=== PATIENT | male | born 1985 | race Caucasian/White ===

== ENCOUNTER 2016-05-21 11:45 | Emergency (ER) | payer OTHER ==
[~2016-05-21 11:45] MED LIST: ABIL10TA OR; ATARAX OR; EXTR500C4 PO; IBUP80TA PO; PERC5TAB6 PO; ROBA750T4 PO; TIZA4CAP3 PO; TRAZ100T OR; ZOLO50TA OR; no historical meds
[2016-05-21] MEDS ORDERED: KETOROLAC 30 MG/ML VIAL (J1885) As Ordered ONE (12:48)
[2016-05-21] MEDS ORDERED: ONDANSETRON 4MG/2ML VIAL (J2405) As Ordered ONE (12:48)
[2016-05-21 13:14] LABS: BASO # 0.1 K/mm3 (0.0-0.2); BASO % 0.7 % (0.0-1.0); EOS # 0.3 K/mm3 (0.0-0.50); EOS % 2.6 % (0.0-3.0); LARGE UNSTAINED CELL # 0.2 K/mm3 (0.0-0.4); LARGE UNSTAINED CELL % 1.8 % (0.0-4.0); LYMPH # 3.8 K/mm3 (1.5-4.5); LYMPH % 31.3 % (24.0-44.0); MEAN CORPUSCULAR HGB CONC 34.7 g/dl (32.0-36.5); MEAN CORPUSCULAR VOLUME 86.6 fl (80.0-96.0); MONO # 0.5 K/mm3 (0.0-0.8); MONO % 4.5 % (0.0-5.0); NEUTROPHILS # 7.1 K/mm3 (1.8-7.7); NEUTROPHILS % 59.1 % (36.0-66.0); PLATELET COUNT, AUTOMATED 231 k/mm3 (150-450); RED CELL DISTRIBUTION WIDTH 13.2 % (11.5-14.5)
[2016-05-21 13:35] LABS: ALBUMIN 3.8 GM/DL (3.2-5.2); ALKALINE PHOSPHATASE 87 U/L (45-117); ALT/SGPT 61 U/L (12-78); ANION GAP 6 MEQ/L (8-16); AST/SGOT 29 U/L (15-37); BILIRUBIN,DIRECT < 0.1 MG/DL (0.0-0.2); BILIRUBIN,TOTAL 0.3 MG/DL (0.2-1.0); BLOOD UREA NITROGEN 16 MG/DL (7-18); CALCIUM LEVEL 8.7 MG/DL (8.5-10.1); CARBON DIOXIDE LEVEL 30 MEQ/L (21-32); CHLORIDE LEVEL 107 MEQ/L (98-107); CREATININE FOR GFR 1.06 MG/DL (0.70-1.30); GLOMERULAR FILTRATION RATE > 60.0 (>60); GLUCOSE, FASTING 97 MG/DL (70-105); POTASSIUM SERUM 4.1 MEQ/L (3.5-5.1); SODIUM LEVEL 143 MEQ/L (136-145); TOTAL PROTEIN 7.6 GM/DL (6.4-8.2)
[2016-05-21] MEDS ORDERED: ISOVUE-370 76% 100ML VIAL (Q9967) As Ordered ONE (13:47)
--- NOTE | 2016-05-21 15:50 | EDDOCDS ---
Nurse's Notes [facility] Name: Tremaine Brown Age: 31 yrs Sex: Male : 1985 Arrival Date: 05/21/2016 Time: 11:45 Bed I4 / M4 Private MD: NO PRIMARY PHYSICIAN, . Diagnosis: Abdominal and pelvic pain;Nausea and vomiting;Diarrhea, unspecified;Umbilical hernia-fat only Presentation: 05/21 11:49 Presenting complaint: Patient states: abdominal pain, nausea, diarrhea, bloody stools rs3 for 5 days. Risk factors: the patient reports not having a history of previous torsion. Adult Sepsis Screening: The patient does not have new or worsening altered mentation. Patient's respiratory rate is less than 22. Systolic blood pressure is greater than 100. Patient has a qSOFA score of 0- Negative Sepsis Screen. Suicide/Homicide risk assessment- the patient denies having any suicidal and/or homicidal ideations and does not present with any other emotional, behavioral or mental health complaints. Status: Patient is not a alarm service technician or dependent. Transition of care: patient was not received from another setting of care. 11:49 Acuity: LEONARDO Level 3 rs3 11:49 Method Of Arrival: Walkin/Carried/Asstd rs3 Triage Assessment: 11:52 General: Appears in no apparent distress. Pain: Location: abdomen. Pt Declines HIV rs3 testing. GI: Reports lower abdominal pain, upper abd pain. Historical: - Allergies: no known allergies; - Home Meds: 1. none - PMHx: Bipolar disorder; - PSHx: Tonsillectomy; - Social history: Smoking status: Patient uses tobacco products, heavy tobacco smoker. No barriers to communication noted, The patient speaks fluent Azeri. - Family history: Not pertinent. - : The pt / caregiver states he / she is not on anticoagulants. Home medication list is obtained from the patient. - Exposure Risk Screening:: None identified. Screenin:52 Screening information is obtained from the patient. Fall risk: No risks identified. kr3 Assistance ADL's: requires no assistance with activities of daily living. Abuse/DV Screen: The patient / caregiver reports he/she is: not in a situation that causes fear, pain or injury. Nutritional screening: No deficits noted. Advance Directives: Currently, there is no health care proxy. home support is adequate. Assessment: 12:52 Pain: Location: abdomen Pain currently is 8 out of 10 on a pain scale. At worst was 9 kr3 out of 10 on a pain scale. Neurological: Level of Consciousness is awake, alert. GI: Abdomen is non- distended. GI: Reports normal bowel movements but eating habits have changed. Reports weight loss of 20 to 30 pounds over 2 months. GI: Bowel sounds present X 4 quads. Abd is soft X 4 quads reports when lower abdomen is palpated pain increases when pressure is released. Derm: Skin is normal. 13:47 General: Appears states pain has decreased to 5/10. quietly resting. IV bolus continues.jmk 15:19 General: Appears in no apparent distress, Behavior is appropriate for age, cooperative, jmb Patient laying on stretcher with family at bedside. Patient stated that he was waiting for CT results. Patient informed of Damion Ortiz's wait for results. Patient stated that he was ready to go home. Provider notified of patient's statement. NO further complaints at this time. . Neurological: Level of Consciousness is awake, alert, obeys commands, Oriented to person, place, time, Cocoa Bean Cleaner are equal bilaterally Speech is normal, Facial symmetry appears normal, Facial symmetry: tongue is midline. Respiratory: Airway is patent Respiratory effort is even, unlabored, Respiratory pattern is regular, symmetrical. Derm: Skin is normal. 15:47 General: Patient instructed on discharge instructions. Patient asked if there were any [place] questions regarding discharge, patient stated no. IV discontinued per hospital policy. Patient signed discharge instructions. Patient discharged in stable condition. . Vital Signs: 11:48 BP 152 / 90; Pulse 74; Resp 18 S; Temp 96.3(O); Pulse Ox 100% on R/A; Weight 95.25 kg dd6 (R); Height 5 ft. 10 in. (177.80 cm) (R); 15:47 BP 133 / 80; Pulse 71; Resp 18; Temp 98.4(TE); Pulse Ox 98% on R/A; Pain 4/10; dem1 11:48 Body Mass Index 30.13 (95.25 kg, 177.80 cm) dd6 Vitals: 11:48 Log In Time: May 21, 2016 at 11:46. dd6 ED Course: 11:47 Patient visited by Alireza Martinez, JULI. dd6 11:47 NO PRIMARY PHYSICIAN, . is Private Physician. dd6 11:47 Patient moved to Waiting dd6 11:48 Patient moved to Pre RCE dd6 11:51 Triage Initiated rs3 12:31 Patient moved to Triage 3 ms2 12:32 Damion Ortiz PA-C is PHCP. cc10 12:32 Arsh Eckert MD is Attending Physician. cc10 12:33 Patient visited by Damion Ortiz PA-C. cc10 12:33 Patient visited by Damion Ortiz PA-C. cc10 12:40 Patient moved to I4 / M4 ct3 12:40 Urinalysis Sent. ct3 12:51 Inserted saline lock: 20 gauge in right antecubital area and blood collected. The kr3 patient tolerated the procedure well. 12:52 The patient / caregiver is instructed regarding the plan of care and ED course. kr3 Accompanied by Family Member, Patient has correct armband on for positive identification. Placed in gown. Bed in low position. Call light in reach. Side rails up X 1. 12:55 Basic Metabolic Profile Sent. jmk 12:55 CBC with Diff Sent. jmk 12:55 Lipase Sent. jmk 12:55 Liver Profile Sent. jmk 13:29 [facility] Payment Agreement was scanned into [email or web address] and attached to record. lg 13:47 Patient visited by Victorino Branch RN. jmk 13:52 Patient name changed from Tremaine\S\Syed\S\Brown\S\ to Tremaine\S\Snehal\S\Kevin. EDMS 15:21 Patient visited by Joseph Rondon RN. jmb 15:41 [facility] is Referral Physician. cc10 15:47 Discontinued lock intact, bleeding controlled, pressure dressing applied, No jmb redness/swelling at site. No procedures done that require assistance. 15:48 Patient visited by Pao Paniagua. dem1 Administered Medications: 12:54 Drug: NS 0.9% 1000 ml Route: IV; Rate: bolus; Site: left antecubital; jmk 12:54 Drug: Ondansetron 4 mg Route: IVP; Site: left antecubital; jmk 12:54 Drug: ketorolac 30 mg [ketorolac 30 mg/mL (1 mL) injection solution (1 mL)] Route: IVP; [facility] Site: left antecubital; 13:48 Follow up: Response: Pain is decreased [facility] Order Results: Lab Order: Basic Metabolic Profile; SPEC'M 05/21/16 12:49 Test: GLUCOSE, FASTING; Value: 97; Range: 70-105; Units: MG/DL; Status: F Test: BLOOD UREA NITROGEN; Value: 16; Range: 7-18; Units: MG/DL; Status: F Test: CREATININE FOR GFR; Value: 1.06; Range: 0.70-1.30; Units: MG/DL; Status: F Test: GLOMERULAR FILTRATION RATE; Value: > 60.0; Range: >60; Status: F Test: SODIUM LEVEL; Value: 143; Range: 136-145; Units: MEQ/L; Status: F Test: POTASSIUM SERUM; Value: 4.1; Range: 3.5-5.1; Units: MEQ/L; Status: F Test: CHLORIDE LEVEL; Value: 107; Range: 98-107; Units: MEQ/L; Status: F Test: CARBON DIOXIDE LEVEL; Value: 30; Range: 21-32; Units: MEQ/L; Status: F Test: ANION GAP; Value: 6; Range: 8-16; Abnormal: Below low normal; Units: MEQ/L; Status: F Test: CALCIUM LEVEL; Value: 8.7; Range: 8.5-10.1; Units: MG/DL; Status: F Test Note: ; Units are mL/min/1.73 m2 Chronic Kidney Disease Staging per NKF: Stage I & II GFR >=60 Normal to Mildly Decreased Stage III GFR 30-59 Moderately Decreased Stage IV GFR 15-29 Severely Decreased Stage V GFR <15 Very Little GFR Left ESRD GFR <15 on [employer]STRUCTOR [employer] Lab Order: CBC with Diff; SPEC'M 05/21/16 12:49 Test: WHITE BLOOD COUNT; Value: 12.0; Range: 4.0-10.0; Abnormal: Above high normal; Units: K/mm3; Status: F Test: RED BLOOD COUNT; Value: 5.35; Range: 4.30-6.10; Units: M/mm3; Status: F Test: HEMOGLOBIN; Value: 16.1; Range: 14.0-18.0; Units: g/dl; Status: F Test: HEMATOCRIT; Value: 46.3; Range: 42.0-52.0; Units: %; Status: F Test: MEAN CORPUSCULAR VOLUME; Value: 86.6; Range: 80.0-96.0; Units: fl; Status: F Test: MEAN CORPUSCULAR HEMOGLOBIN; Value: 30.0; Range: 27.0-33.0; Units: pg; Status: F Test: MEAN CORPUSCULAR HGB CONC; Value: 34.7; Range: 32.0-36.5; Units: g/dl; Status: F Test: RED CELL DISTRIBUTION WIDTH; Value: 13.2; Range: 11.5-14.5; Units: %; Status: F Test: PLATELET COUNT, AUTOMATED; Value: 231; Range: 150-450; Units: k/mm3; Status: F Test: NEUTROPHILS %; Value: 59.1; Range: 36.0-66.0; Units: %; Status: F Test: LYMPH %; Value: 31.3; Range: 24.0-44.0; Units: %; Status: F Test: MONO %; Value: 4.5; Range: 0.0-5.0; Units: %; Status: F Test: EOS %; Value: 2.6; Range: 0.0-3.0; Units: %; Status: F Test: BASO %; Value: 0.7; Range: 0.0-1.0; Units: %; Status: F Test: LARGE UNSTAINED CELL %; Value: 1.8; Range: 0.0-4.0; Units: %; Status: F Test: NEUTROPHILS #; Value: 7.1; Range: 1.8-7.7; Units: K/mm3; Status: F Test: LYMPH #; Value: 3.8; Range: 1.5-4.5; Units: K/mm3; Status: F Test: MONO #; Value: 0.5; Range: 0.0-0.8; Units: K/mm3; Status: F Test: EOS #; Value: 0.3; Range: 0.0-0.50; Units: K/mm3; Status: F Test: BASO #; Value: 0.1; Range: 0.0-0.2; Units: K/mm3; Status: F Test: LARGE UNSTAINED CELL #; Value: 0.2; Range: 0.0-0.4; Units: K/mm3; Status: F Lab Order: Lipase; [facility] 05/21/16 12:49 Test: LIPASE; Value: 139; Range: 73-393; Units: U/L; Status: F Lab Order: Liver Profile; [facility] 05/21/16 12:49 Test: AST/SGOT; Value: 29; Range: 15-37; Units: U/L; Status: F Test: ALT/SGPT; Value: 61; Range: 12-78; Units: U/L; Status: F Test: ALKALINE PHOSPHATASE; Value: 87; Range: 45-117; Units: U/L; Status: F Test: BILIRUBIN,TOTAL; Value: 0.3; Range: 0.2-1.0; Units: MG/DL; Status: F Test: BILIRUBIN,DIRECT; Value: < 0.1; Range: 0.0-0.2; Units: MG/DL; Status: F Test: TOTAL PROTEIN; Value: 7.6; Range: 6.4-8.2; Units: GM/DL; Status: F Test: ALBUMIN; Value: 3.8; Range: 3.2-5.2; Units: GM/DL; Status: F Test: ALBUMIN/GLOBULIN RATIO; Value: 1.00; Range: 1.00-1.93; Status: F Lab Order: Urinalysis; [facility] 05/21/16 12:39 Test: APPEARANCE, URINE; Value: CLEAR; Range: CLEAR; Status: F Test: COLOR, URINE; Value: YELLOW; Range: YELLOW; Status: F Test: PH,URINE; Value: 5.0; Range: 5.0-9.0; Units: UNITS; Status: F Test: SPECIFIC GRAVITY URINE AUTO; Value: 1.021; Range: 1.002-1.035; Status: F Test: PROTEIN, URINE AUTO; Value: NEGATIVE; Range: NEGATIVE; Units: mg/dL; Status: F Test: GLUCOSE, URINE (UA) AUTO; Value: NEGATIVE; Range: NEGATIVE; Units: mg/dL; Status: F Test: KETONE, URINE AUTO; Value: NEGATIVE; Range: NEGATIVE; Units: mg/dL; Status: F Test: UROBILINOGEN, URINE AUTO; Value: 0.2; Range: 0.0-2.0; Units: mg/dL; Status: F Test: BILIRUBIN, URINE AUTO; Value: NEGATIVE; Range: NEGATIVE; Status: F Test: NITRITE, URINE AUTO; Value: NEGATIVE; Range: NEGATIVE; Status: F Test: LEUKOCYTE ESTERASE, URINE AUTO; Value: NEGATIVE; Range: NEGATIVE; Status: F Test: BLOOD, URINE BLOOD; Value: NEGATIVE; Range: NEGATIVE; Status: F Test: WBC, URINE AUTO; Value: 0; Range: 0-3; Units: /HPF; Status: F Test: RBC, URINE AUTO; Value: 0; Range: 0-3; Units: /HPF; Status: F Test: BACTERIA, URINE AUTO; Value: NEGATIVE; Range: NEGATIVE; Status: F Test: SQUAMOUS EPITHELIAL CELL UR AU; Value: 0; Range: 0-6; Units: /HPF; Status: F Test: HYALINE CAST, URINE AUTO; Value: 0; Range: 0-1; Units: /LPF; Status: F Outcome: 14:10 CT Study completed. kr3 15:41 Discharge ordered by Provider. cc10 15:47 Discharge Assessment: Patient awake, alert and oriented x 3. No cognitive and/or jmb functional deficits noted. Patient verbalized understanding of disposition instructions. Patient awake and alert. obeys commands, Oriented to person, place and time. Patient verbalized understanding of disposition instructions. Patient has no functional deficits. patient administered narcotics - no. The following High Risk Discharge criteria are identified: None. Discharged to home ambulatory, with family. Condition: stable. Discharge instructions given to patient, Instructed on discharge instructions, follow up and referral plans. medication usage, Demonstrated understanding of instructions, medications, Pt was receptive of discharge instructions/ teaching. Prescriptions given X 2. Property sent home with patient. 15:49 Patient left the ED. b Signatures: Dispatcher [employer] EDGuy Johnson,Victorino Lott RN, RN RN jmk Ganter, LoriLee, Shital Franklin lg, RN RN kr3 Alireza Martinez, ONLINE MERCHANDISING MANAGER ONLINE MERCHANDISING MANAGER dd6 Karrie Choudhary RN RN rs3 Kiana Gay, ONLINE MERCHANDISING MANAGER ONLINE MERCHANDISING MANAGER ct3 Pao Paniagua dem1 Joseph Rondon,RN RN jmb Damion Ortiz, PA-C PA-C cc10 MTDD
--- NOTE | 2016-05-21 15:50 | EDDOCDS ---
Physician Documentation [facility] Name: Tremaine Brown Age: 31 yrs Sex: Male : 1985 Arrival Date: 05/21/2016 Time: 11:45 Bed I4 / M4 Private MD: NO PRIMARY PHYSICIAN, . Disposition: 05/21/16 15:41 Discharged to Home/Self Care. Impression: Abdominal and pelvic pain, Nausea and vomiting, Diarrhea, unspecified, Umbilical hernia - fat only. - Condition is Stable. - Discharge Instructions: Viral Gastroenteritis. - Prescriptions for Bentyl 10 mg Oral Capsule - take 1 capsule by ORAL route every 6 hours As needed; 40 capsule. ZOFRAN ODT 4 mg - dissolve 1 tablet by ORAL route 4 times per day As needed do not chew, do not swallow whole; 10 tablet. - Medication Reconciliation form. - Follow up: Emergency Department; When: As needed. Follow up: [facility]; When: Call to arrange an appointment; Reason: Wound/Symptom Recheck, Recheck today's complaints, Worsening of conditions, Continuance of care. - Problem is an ongoing problem. - Symptoms are unchanged. Historical: - Allergies: no known allergies; - Home Meds: 1. none - PMHx: Bipolar disorder; - PSHx: Tonsillectomy; - Social history: Smoking status: Patient uses tobacco products, heavy tobacco smoker. No barriers to communication noted, The patient speaks fluent [place]. - Family history: Not pertinent. - : The pt / caregiver states he / she is not on anticoagulants. Home medication list is obtained from the patient. - Exposure Risk Screening:: None identified. Vital Signs: 05/21 11:48 BP 152 / 90; Pulse 74; Resp 18 S; Temp 96.3(O); Pulse Ox 100% on R/A; Weight 95.25 kg / dd6 209.99 lbs (R); Height 5 ft. 10 in. (177.80 cm) (R); 15:47 BP 133 / 80; Pulse 71; Resp 18; Temp 98.4(TE); Pulse Ox 98% on R/A; Pain 4/10; dem1 11:48 Body Mass Index 30.13 (95.25 kg, 177.80 cm) dd6 MDM: 12:36 NS 0.9% 1000 ml IV at bolus once ordered. cc10 12:36 Ondansetron 4 mg IVP once ordered. cc10 12:36 ketorolac 30 mg IVP once ordered. cc10 12:36 IV Saline Lock ordered. cc10 12:36 Undress patient appropriately for examination ordered. cc10 12:37 Basic Metabolic Profile Ordered. EDMS 12:37 CBC with Diff Ordered. EDMS 12:37 Lipase Ordered. EDMS 12:37 Liver Profile Ordered. EDMS 12:37 Urinalysis Ordered. EDMS 12:38 CT ABD & PELVIS: IV Contrast Only Ordered. EDMS 12:38 NOTHING BY MOUTH+DIET ordered. EDMS 13:10 Financial registration complete. lg 13:29 [facility] Payment Agreement was scanned into [employer] and attached to record. lg 13:41 Basic Metabolic Profile Reviewed. cc10 13:41 CBC with Diff Reviewed. cc10 13:41 Lipase Reviewed. cc10 13:41 Liver Profile Reviewed. cc10 13:41 Urinalysis Reviewed. cc10 Administered Medications: 12:54 Drug: NS 0.9% 1000 ml Route: IV; Rate: bolus; Site: left antecubital; [facility] 12:54 Drug: Ondansetron 4 mg Route: IVP; Site: left antecubital; [facility] 12:54 Drug: ketorolac 30 mg [ketorolac 30 mg/mL (1 mL) injection solution (1 mL)] Route: IVP; [facility] Site: left antecubital; 13:48 Follow up: Response: Pain is decreased [facility] Signatures: Dispatcher [employer] EDMO Gilbert Wilcox, Reg Reg lg Karrie Choudhary RN RN rs3 Joseph Rondon RN RN jmb Coniski, Colin, PA-C PA-C cc10 Victorino Branch RN The chart was reviewed and I authenticate all verbal orders and agree with the evaluation and treatment provided.Attachments: 13:29 [facility]
--- NOTE | 2016-05-22 22:01 | REP ---
CT abdomen and pelvis with IV contrast 05/21/16 Patient: Appendicitis Comparison: CT of the pelvis 01/06/2013 Technique: Following IV contrast administration with 100 ml Isovue 370 mg/ml IV, 3 mm spiral axial sections were performed through the abdomen and pelvis Findings: Small amount of atelectasis and/or fibrotic scarring present in lung bases bilaterally, right greater than left. Liver, spleen, pancreas are normal. The gallbladder is partially contracted, without stones wall thickening or biliary dilatation. The adrenal glands are normal. Kidneys are without hydronephrosis or obstructing ureteral calculi bilaterally. Stomach, small bowel are within normal limits. The terminal ileum and appendix are normal. Abdominal aorta is of normal course and caliber Bladder is contracted; prostate is not enlarged. There a scattered sigmoid diverticuli. A 10 mm umbilical hernia is noted containing a small amount of omental fat only. There is no free intraperitoneal air or ascites. Impression 1. Unremarkable appendix and gallbladder. 2. Kidneys without hydronephrosis or obstructing ureteral calculi bilaterally. 3. Colon is under distended ; there are a few scattered sigmoid diverticula. 4. 10 mm umbilical hernia containing small amount of omental fat only Signed by Torri Culver MD 05/22/2016 09:52 P
--- NOTE | 2016-05-23 16:50 | EDDOCDS ---
Nurse's Notes [facility] Name: Tremaine Brown Age: 31 yrs Sex: Male : 1985 Arrival Date: 05/21/2016 Time: 11:45 Bed I4 / M4 Private MD: NO PRIMARY PHYSICIAN, . Diagnosis: Abdominal and pelvic pain;Nausea and vomiting;Diarrhea, unspecified;Umbilical hernia-fat only Presentation: 05/21 11:49 Presenting complaint: Patient states: abdominal pain, nausea, diarrhea, bloody stools rs3 for 5 days. Risk factors: the patient reports not having a history of previous torsion. Adult Sepsis Screening: The patient does not have new or worsening altered mentation. Patient's respiratory rate is less than 22. Systolic blood pressure is greater than 100. Patient has a qSOFA score of 0- Negative Sepsis Screen. Suicide/Homicide risk assessment- the patient denies having any suicidal and/or homicidal ideations and does not present with any other emotional, behavioral or mental health complaints. Status: Patient is not a hr shared services consultant or dependent. Transition of care: patient was not received from another setting of care. 11:49 Acuity: LEONARDO Level 3 rs3 11:49 Method Of Arrival: Walkin/Carried/Asstd rs3 Triage Assessment: 11:52 General: Appears in no apparent distress. Pain: Location: abdomen. Pt Declines HIV rs3 testing. GI: Reports lower abdominal pain, upper abd pain. Historical: - Allergies: no known allergies; - Home Meds: 1. none - PMHx: Bipolar disorder; - PSHx: Tonsillectomy; - Social history: Smoking status: Patient uses tobacco products, heavy tobacco smoker. No barriers to communication noted, The patient speaks fluent Yoruba. - Family history: Not pertinent. - : The pt / caregiver states he / she is not on anticoagulants. Home medication list is obtained from the patient. - Exposure Risk Screening:: None identified. Screenin:52 Screening information is obtained from the patient. Fall risk: No risks identified. kr3 Assistance ADL's: requires no assistance with activities of daily living. Abuse/DV Screen: The patient / caregiver reports he/she is: not in a situation that causes fear, pain or injury. Nutritional screening: No deficits noted. Advance Directives: Currently, there is no health care proxy. home support is adequate. Assessment: 12:52 Pain: Location: abdomen Pain currently is 8 out of 10 on a pain scale. At worst was 9 kr3 out of 10 on a pain scale. Neurological: Level of Consciousness is awake, alert. GI: Abdomen is non- distended. GI: Reports normal bowel movements but eating habits have changed. Reports weight loss of 20 to 30 pounds over 2 months. GI: Bowel sounds present X 4 quads. Abd is soft X 4 quads reports when lower abdomen is palpated pain increases when pressure is released. Derm: Skin is normal. 13:47 General: Appears states pain has decreased to 5/10. quietly resting. IV bolus continues.jmk 15:19 General: Appears in no apparent distress, Behavior is appropriate for age, cooperative, jmb Patient laying on stretcher with family at bedside. Patient stated that he was waiting for CT results. Patient informed of Damion Ortiz's wait for results. Patient stated that he was ready to go home. Provider notified of patient's statement. NO further complaints at this time. . Neurological: Level of Consciousness is awake, alert, obeys commands, Oriented to person, place, time, Solution Developer are equal bilaterally Speech is normal, Facial symmetry appears normal, Facial symmetry: tongue is midline. Respiratory: Airway is patent Respiratory effort is even, unlabored, Respiratory pattern is regular, symmetrical. Derm: Skin is normal. 15:47 General: Patient instructed on discharge instructions. Patient asked if there were any [facility] questions regarding discharge, patient stated no. IV discontinued per hospital policy. Patient signed discharge instructions. Patient discharged in stable condition. . Vital Signs: 11:48 BP 152 / 90; Pulse 74; Resp 18 S; Temp 96.3(O); Pulse Ox 100% on R/A; Weight 95.25 kg dd6 (R); Height 5 ft. 10 in. (177.80 cm) (R); 15:47 BP 133 / 80; Pulse 71; Resp 18; Temp 98.4(TE); Pulse Ox 98% on R/A; Pain 4/10; dem1 11:48 Body Mass Index 30.13 (95.25 kg, 177.80 cm) dd6 Vitals: 11:48 Log In Time: May 21, 2016 at 11:46. dd6 ED Course: 11:47 Patient visited by Alireza Martinez, JULI. dd6 11:47 NO PRIMARY PHYSICIAN, . is Private Physician. dd6 11:47 Patient moved to Waiting dd6 11:48 Patient moved to Pre RCE dd6 11:51 Triage Initiated rs3 12:31 Patient moved to Triage 3 ms2 12:32 Damion Ortiz PA-C is PHCP. cc10 12:32 Arsh Eckert MD is Attending Physician. cc10 12:33 Patient visited by Damion Ortiz PA-C. cc10 12:33 Patient visited by Damion Ortiz PA-C. cc10 12:40 Patient moved to I4 / M4 ct3 12:40 Urinalysis Sent. ct3 12:51 Inserted saline lock: 20 gauge in right antecubital area and blood collected. The kr3 patient tolerated the procedure well. 12:52 The patient / caregiver is instructed regarding the plan of care and ED course. kr3 Accompanied by Family Member, Patient has correct armband on for positive identification. Placed in gown. Bed in low position. Call light in reach. Side rails up X 1. 12:55 Basic Metabolic Profile Sent. jmk 12:55 CBC with Diff Sent. jmk 12:55 Lipase Sent. jmk 12:55 Liver Profile Sent. jmk 13:29 [facility] Payment Agreement was scanned into [employer] and attached to record. lg 13:47 Patient visited by Victorino Branch RN. jmk 13:52 Patient name changed from Tremaine\S\Syed\S\Brown\S\ to Tremaine\S\Snehal\S\Kevin. EDMS 15:21 Patient visited by Joseph Rondon RN. jmb 15:41 [facility] is Referral Physician. cc10 15:47 Discontinued lock intact, bleeding controlled, pressure dressing applied, No jmb redness/swelling at site. No procedures done that require assistance. 15:48 Patient visited by Pao Paniagua. dem1 05/22 12:04 T-Sheet-- Draft Copy was scanned into [employer] and attached to record. gb 22:02 CT ABD & PELVIS: IV Contrast Only Returned. EDMS Administered Medications: 05/21 12:54 Drug: NS 0.9% 1000 ml Route: IV; Rate: bolus; Site: left antecubital; jmk 12:54 Drug: Ondansetron 4 mg Route: IVP; Site: left antecubital; [facility] 12:54 Drug: ketorolac 30 mg [ketorolac 30 mg/mL (1 mL) injection solution (1 mL)] Route: IVP; [facility] Site: left antecubital; 13:48 Follow up: Response: Pain is decreased [facility] Order Results: Lab Order: Basic Metabolic Profile; SPEC'M 05/21/16 12:49 Test: GLUCOSE, FASTING; Value: 97; Range: 70-105; Units: MG/DL; Status: F Test: BLOOD UREA NITROGEN; Value: 16; Range: 7-18; Units: MG/DL; Status: F Test: CREATININE FOR GFR; Value: 1.06; Range: 0.70-1.30; Units: MG/DL; Status: F Test: GLOMERULAR FILTRATION RATE; Value: > 60.0; Range: >60; Status: F Test: SODIUM LEVEL; Value: 143; Range: 136-145; Units: MEQ/L; Status: F Test: POTASSIUM SERUM; Value: 4.1; Range: 3.5-5.1; Units: MEQ/L; Status: F Test: CHLORIDE LEVEL; Value: 107; Range: 98-107; Units: MEQ/L; Status: F Test: CARBON DIOXIDE LEVEL; Value: 30; Range: 21-32; Units: MEQ/L; Status: F Test: ANION GAP; Value: 6; Range: 8-16; Abnormal: Below low normal; Units: MEQ/L; Status: F Test: CALCIUM LEVEL; Value: 8.7; Range: 8.5-10.1; Units: MG/DL; Status: F Test Note: ; Units are mL/min/1.73 m2 Chronic Kidney Disease Staging per NKF: Stage I & II GFR >=60 Normal to Mildly Decreased Stage III GFR 30-59 Moderately Decreased Stage IV GFR 15-29 Severely Decreased Stage V GFR <15 Very Little GFR Left ESRD GFR <15 on PHYSIOTHERAPIST'S ASSISTANT Lab Order: CBC with Diff; SPEC'M 05/21/16 12:49 Test: WHITE BLOOD COUNT; Value: 12.0; Range: 4.0-10.0; Abnormal: Above high normal; Units: K/mm3; Status: F Test: RED BLOOD COUNT; Value: 5.35; Range: 4.30-6.10; Units: M/mm3; Status: F Test: HEMOGLOBIN; Value: 16.1; Range: 14.0-18.0; Units: g/dl; Status: F Test: HEMATOCRIT; Value: 46.3; Range: 42.0-52.0; Units: %; Status: F Test: MEAN CORPUSCULAR VOLUME; Value: 86.6; Range: 80.0-96.0; Units: fl; Status: F Test: MEAN CORPUSCULAR HEMOGLOBIN; Value: 30.0; Range: 27.0-33.0; Units: pg; Status: F Test: MEAN CORPUSCULAR HGB CONC; Value: 34.7; Range: 32.0-36.5; Units: g/dl; Status: F Test: RED CELL DISTRIBUTION WIDTH; Value: 13.2; Range: 11.5-14.5; Units: %; Status: F Test: PLATELET COUNT, AUTOMATED; Value: 231; Range: 150-450; Units: k/mm3; Status: F Test: NEUTROPHILS %; Value: 59.1; Range: 36.0-66.0; Units: %; Status: F Test: LYMPH %; Value: 31.3; Range: 24.0-44.0; Units: %; Status: F Test: MONO %; Value: 4.5; Range: 0.0-5.0; Units: %; Status: F Test: EOS %; Value: 2.6; Range: 0.0-3.0; Units: %; Status: F Test: BASO %; Value: 0.7; Range: 0.0-1.0; Units: %; Status: F Test: LARGE UNSTAINED CELL %; Value: 1.8; Range: 0.0-4.0; Units: %; Status: F Test: NEUTROPHILS #; Value: 7.1; Range: 1.8-7.7; Units: K/mm3; Status: F Test: LYMPH #; Value: 3.8; Range: 1.5-4.5; Units: K/mm3; Status: F Test: MONO #; Value: 0.5; Range: 0.0-0.8; Units: K/mm3; Status: F Test: EOS #; Value: 0.3; Range: 0.0-0.50; Units: K/mm3; Status: F Test: BASO #; Value: 0.1; Range: 0.0-0.2; Units: K/mm3; Status: F Test: LARGE UNSTAINED CELL #; Value: 0.2; Range: 0.0-0.4; Units: K/mm3; Status: F Lab Order: Lipase; [facility]' 05/21/16 12:49 Test: LIPASE; Value: 139; Range: 73-393; Units: U/L; Status: F Lab Order: Liver Profile; [facility]'M 05/21/16 12:49 Test: AST/SGOT; Value: 29; Range: 15-37; Units: U/L; Status: F Test: ALT/SGPT; Value: 61; Range: 12-78; Units: U/L; Status: F Test: ALKALINE PHOSPHATASE; Value: 87; Range: 45-117; Units: U/L; Status: F Test: BILIRUBIN,TOTAL; Value: 0.3; Range: 0.2-1.0; Units: MG/DL; Status: F Test: BILIRUBIN,DIRECT; Value: < 0.1; Range: 0.0-0.2; Units: MG/DL; Status: F Test: TOTAL PROTEIN; Value: 7.6; Range: 6.4-8.2; Units: GM/DL; Status: F Test: ALBUMIN; Value: 3.8; Range: 3.2-5.2; Units: GM/DL; Status: F Test: ALBUMIN/GLOBULIN RATIO; Value: 1.00; Range: 1.00-1.93; Status: F Lab Order: Urinalysis; [facility]' 05/21/16 12:39 Test: APPEARANCE, URINE; Value: CLEAR; Range: CLEAR; Status: F Test: COLOR, URINE; Value: YELLOW; Range: YELLOW; Status: F Test: PH,URINE; Value: 5.0; Range: 5.0-9.0; Units: UNITS; Status: F Test: SPECIFIC GRAVITY URINE AUTO; Value: 1.021; Range: 1.002-1.035; Status: F Test: PROTEIN, URINE AUTO; Value: NEGATIVE; Range: NEGATIVE; Units: mg/dL; Status: F Test: GLUCOSE, URINE (UA) AUTO; Value: NEGATIVE; Range: NEGATIVE; Units: mg/dL; Status: F Test: KETONE, URINE AUTO; Value: NEGATIVE; Range: NEGATIVE; Units: mg/dL; Status: F Test: UROBILINOGEN, URINE AUTO; Value: 0.2; Range: 0.0-2.0; Units: mg/dL; Status: F Test: BILIRUBIN, URINE AUTO; Value: NEGATIVE; Range: NEGATIVE; Status: F Test: NITRITE, URINE AUTO; Value: NEGATIVE; Range: NEGATIVE; Status: F Test: LEUKOCYTE ESTERASE, URINE AUTO; Value: NEGATIVE; Range: NEGATIVE; Status: F Test: BLOOD, URINE BLOOD; Value: NEGATIVE; Range: NEGATIVE; Status: F Test: WBC, URINE AUTO; Value: 0; Range: 0-3; Units: /HPF; Status: F Test: RBC, URINE AUTO; Value: 0; Range: 0-3; Units: /HPF; Status: F Test: BACTERIA, URINE AUTO; Value: NEGATIVE; Range: NEGATIVE; Status: F Test: SQUAMOUS EPITHELIAL CELL UR AU; Value: 0; Range: 0-6; Units: /HPF; Status: F Test: HYALINE CAST, URINE AUTO; Value: 0; Range: 0-1; Units: /LPF; Status: F Radiology Order: CT ABD & PELVIS: IV Contrast Only Test: CT ABD & PELVIS: IV Contrast Only REASON FOR EXAMINATION: Appendicitis; CT abdomen and pelvis with IV contrast 05/21/16; ; Patient: Appendicitis; ; Comparison: CT of the pelvis 01/06/2013; ; Technique: Following IV contrast administration with 100 ml Isovue 370 mg/ml IV,; 3 mm spiral axial sections were performed through the abdomen and pelvis; ; Findings: Small amount of atelectasis and/or fibrotic scarring present in lung; bases bilaterally, right greater than left.; ; Liver, spleen, pancreas are normal. The gallbladder is partially contracted,; without stones wall thickening or biliary dilatation. The adrenal glands are; normal. Kidneys are without hydronephrosis or obstructing ureteral calculi; bilaterally. Stomach, small bowel are within normal limits. The terminal ileum; and appendix are normal. Abdominal aorta is of normal course and caliber; ; Bladder is contracted; prostate is not enlarged. There a scattered sigmoid; diverticuli. A 10 mm umbilical hernia is noted containing a small amount of; omental fat only. There is no free intraperitoneal air or ascites.; ; Impression; 1. Unremarkable appendix and gallbladder.; 2. Kidneys without hydronephrosis or obstructing ureteral calculi bilaterally.; 3. Colon is under distended ; there are a few scattered sigmoid diverticula.; 4. 10 mm umbilical hernia containing small amount of omental fat only; ; ; ; ; Signed by; Torri Culver MD 05/22/2016 09:52 P; Outcome: 14:10 CT Study completed. kr3 15:41 Discharge ordered by Provider. cc10 15:47 Discharge Assessment: Patient awake, alert and oriented x 3. No cognitive and/or jmb functional deficits noted. Patient verbalized understanding of disposition instructions. Patient awake and alert. obeys commands, Oriented to person, place and time. Patient verbalized understanding of disposition instructions. Patient has no functional deficits. patient administered narcotics - no. The following High Risk Discharge criteria are identified: None. Discharged to home ambulatory, with family. Condition: stable. Discharge instructions given to patient, Instructed on discharge instructions, follow up and referral plans. medication usage, Demonstrated understanding of instructions, medications, Pt was receptive of discharge instructions/ teaching. Prescriptions given X 2. Property sent home with patient. 15:49 Patient left the ED. aaron Signatures: Dispatcher [employer] EDMS Guy Sarkar,RN RN ms2 Victorino BranchRN RN Candelaria Maher, Reg Reg gb Gilbert Wilcox, Reg Reg lg Shital Dent,RN RN kr3 Alireza Martinez, FORESTRY CREW CHIEF FORESTRY CREW CHIEF dd6 Karrie Choudhary,RN RN albaro3 Kiana Gay, FORESTRY CREW CHIEF FORESTRY CREW CHIEF ct3 Pao Paniagua JoshuaRN RN Damion Elise, PA-C PA-C cc10 Chart Complete MTDD
--- NOTE | 2016-05-23 16:50 | EDDOCDS ---
Physician Documentation [facility] Name: Tremaine Brown Age: 31 yrs Sex: Male : 1985 Arrival Date: 05/21/2016 Time: 11:45 Bed I4 / M4 Private MD: NO PRIMARY PHYSICIAN, . Disposition: 05/21/16 15:41 Discharged to Home/Self Care. Impression: Abdominal and pelvic pain, Nausea and vomiting, Diarrhea, unspecified, Umbilical hernia - fat only. - Condition is Stable. - Discharge Instructions: Viral Gastroenteritis. - Prescriptions for Bentyl 10 mg Oral Capsule - take 1 capsule by ORAL route every 6 hours As needed; 40 capsule. ZOFRAN ODT 4 mg - dissolve 1 tablet by ORAL route 4 times per day As needed do not chew, do not swallow whole; 10 tablet. - Medication Reconciliation form. - Follow up: Emergency Department; When: As needed. [facility]: [facility]; When: Call to arrange an appointment; Reason: Wound/Symptom Recheck, Recheck today's complaints, Worsening of conditions, Continuance of care. - Problem is an ongoing problem. - Symptoms are unchanged. Historical: - Allergies: no known allergies; - Home Meds: 1. none - PMHx: Bipolar disorder; - PSHx: Tonsillectomy; - Social history: Smoking status: Patient uses tobacco products, heavy tobacco smoker. No barriers to communication noted, The patient speaks fluent [place]. - Family history: Not pertinent. - : The pt / caregiver states he / she is not on anticoagulants. Home medication list is obtained from the patient. - Exposure Risk Screening:: None identified. Vital Signs: 05/21 11:48 BP 152 / 90; Pulse 74; Resp 18 S; Temp 96.3(O); Pulse Ox 100% on R/A; Weight 95.25 kg / dd6 209.99 lbs (R); Height 5 ft. 10 in. (177.80 cm) (R); 15:47 BP 133 / 80; Pulse 71; Resp 18; Temp 98.4(TE); Pulse Ox 98% on R/A; Pain 4/10; dem1 11:48 Body Mass Index 30.13 (95.25 kg, 177.80 cm) dd6 MDM: 12:36 NS 0.9% 1000 ml IV at bolus once ordered. cc10 12:36 Ondansetron 4 mg IVP once ordered. cc10 12:36 ketorolac 30 mg IVP once ordered. cc10 12:36 IV Saline Lock ordered. cc10 12:36 Undress patient appropriately for examination ordered. cc10 12:37 Basic Metabolic Profile Ordered. EDMS 12:37 CBC with Diff Ordered. EDMS 12:37 Lipase Ordered. EDMS 12:37 Liver Profile Ordered. EDMS 12:37 Urinalysis Ordered. EDMS 12:38 CT ABD & PELVIS: IV Contrast Only Ordered. EDMS 12:38 NOTHING BY MOUTH+DIET ordered. EDMS 13:10 Financial registration complete. lg 13:29 [facility] Payment Agreement was scanned into [employer] and attached to record. lg 13:41 Basic Metabolic Profile Reviewed. cc10 13:41 CBC with Diff Reviewed. cc10 13:41 Lipase Reviewed. cc10 13:41 Liver Profile Reviewed. cc10 13:41 Urinalysis Reviewed. cc10 05/22 12:04 T-Sheet-- Draft Copy was scanned into [employer] and attached to record. gb Administered Medications: 05/21 12:54 Drug: NS 0.9% 1000 ml Route: IV; Rate: bolus; Site: left antecubital; lou 12:54 Drug: Ondansetron 4 mg Route: IVP; Site: left antecubital; lou 12:54 Drug: ketorolac 30 mg [ketorolac 30 mg/mL (1 mL) injection solution (1 mL)] Route: IVP; jade Site: left antecubital; 13:48 Follow up: Response: Pain is decreased jade Signatures: Dispatcher [employer] EDMS Candelaria Lewis, Reg Reg gb Gilbert Wilcox, Reg Reg lg Karrie Choudhary,RN RN rs3 Joseph RondonRN RN Damion Elise PA-C PAKunal cc10 Victorino Branch RN The chart was reviewed and I authenticate all verbal orders and agree with the evaluation and treatment provided.Attachments: 13:29 [facility] Payment Agreement lg 05/22 12:04 T-Sheet-- Draft Copy gb Chart Complete MTDD
--- NOTE | 2016-05-23 16:50 | EDDOCDS ---
Physician Documentation [facility] Name: Tremaine Brown Age: 31 yrs Sex: Male : 1985 Arrival Date: 05/21/2016 Time: 11:45 Bed I4 / M4 Private MD: NO PRIMARY PHYSICIAN, . Disposition: 05/21/16 15:41 Discharged to Home/Self Care. Impression: Abdominal and pelvic pain, Nausea and vomiting, Diarrhea, unspecified, Umbilical hernia - fat only. - Condition is Stable. - Discharge Instructions: Viral Gastroenteritis. - Prescriptions for Bentyl 10 mg Oral Capsule - take 1 capsule by ORAL route every 6 hours As needed; 40 capsule. ZOFRAN ODT 4 mg - dissolve 1 tablet by ORAL route 4 times per day As needed do not chew, do not swallow whole; 10 tablet. - Medication Reconciliation form. - Follow up: Emergency Department; When: As needed. [facility]: [facility]; When: Call to arrange an appointment; Reason: Wound/Symptom Recheck, Recheck today's complaints, Worsening of conditions, Continuance of care. - Problem is an ongoing problem. - Symptoms are unchanged. Historical: - Allergies: no known allergies; - Home Meds: 1. none - PMHx: Bipolar disorder; - PSHx: Tonsillectomy; - Social history: Smoking status: Patient uses tobacco products, heavy tobacco smoker. No barriers to communication noted, The patient speaks fluent Bulgarian. - Family history: Not pertinent. - : The pt / caregiver states he / she is not on anticoagulants. Home medication list is obtained from the patient. - Exposure Risk Screening:: None identified. Vital Signs: 05/21 11:48 BP 152 / 90; Pulse 74; Resp 18 S; Temp 96.3(O); Pulse Ox 100% on R/A; Weight 95.25 kg / dd6 209.99 lbs (R); Height 5 ft. 10 in. (177.80 cm) (R); 15:47 BP 133 / 80; Pulse 71; Resp 18; Temp 98.4(TE); Pulse Ox 98% on R/A; Pain 4/10; dem1 11:48 Body Mass Index 30.13 (95.25 kg, 177.80 cm) dd6 MDM: 12:36 NS 0.9% 1000 ml IV at bolus once ordered. cc10 12:36 Ondansetron 4 mg IVP once ordered. cc10 12:36 ketorolac 30 mg IVP once ordered. cc10 12:36 IV Saline Lock ordered. cc10 12:36 Undress patient appropriately for examination ordered. cc10 12:37 Basic Metabolic Profile Ordered. EDMS 12:37 CBC with Diff Ordered. EDMS 12:37 Lipase Ordered. EDMS 12:37 Liver Profile Ordered. EDMS 12:37 Urinalysis Ordered. EDMS 12:38 CT ABD & PELVIS: IV Contrast Only Ordered. EDMS 12:38 NOTHING BY MOUTH+DIET ordered. EDMS 13:10 Financial registration complete. lg 13:29 [facility] Payment Agreement was scanned into [employer] and attached to record. lg 13:41 Basic Metabolic Profile Reviewed. cc10 13:41 CBC with Diff Reviewed. cc10 13:41 Lipase Reviewed. cc10 13:41 Liver Profile Reviewed. cc10 13:41 Urinalysis Reviewed. cc10 05/22 12:04 T-Sheet-- Draft Copy was scanned into [employer] and attached to record. gb Administered Medications: 05/21 12:54 Drug: NS 0.9% 1000 ml Route: IV; Rate: bolus; Site: left antecubital; lou 12:54 Drug: Ondansetron 4 mg Route: IVP; Site: left antecubital; lou 12:54 Drug: ketorolac 30 mg [ketorolac 30 mg/mL (1 mL) injection solution (1 mL)] Route: IVP; jade Site: left antecubital; 13:48 Follow up: Response: Pain is decreased jade Signatures: Dispatcher [employer] EDMS Candelaria Lewis, Reg Reg gb Gilbert Wilcox, Reg Reg lg Karrie Choudhary,RN RN rs3 Joseph RondonRN RN Damion Elise PA-C PAKunal cc10 Victorino Branch RN The chart was reviewed and I authenticate all verbal orders and agree with the evaluation and treatment provided.Attachments: 13:29 [facility] Payment Agreement lg 05/22 12:04 T-Sheet-- Draft Copy gb Chart Complete MTDD
== END 2016-05-21 15:49 | disposition home or self-care (01) ==
LOC: M ED 11:45
DX: K42.9 Umbilical hernia without obstruction or gangrene (principal); R11.2 Nausea with vomiting, unspecified; R19.7 Diarrhea, unspecified; K64.9 Unspecified hemorrhoids; F31.9 Bipolar disorder, unspecified; F17.210 Nicotine dependence, cigarettes, uncomplicated
CPT/HCPCS: 36415; 74177; 80048; 80076; 81001; 83690; 85025; 96374; 96375; 99284; J1885; J2405; Q9967

== ENCOUNTER → 2016-08-09 | Outpatient (CLI) | payer OTHER ==
[~2016-08-09] MED LIST changes: +E-Z PAQUE 60% w/v SUSP 355ML BOTTLE As Ordered ONE
--- NOTE | 2016-08-09 16:36 | REP ---
SMALL BOWEL FOLLOW-THROUGH: The procedure was performed under the direct supervision of Dr. Moreno. The images were reviewed with Dr. Moreno. The work ticket distributor film shows no organomegaly or pathological masses. The intestinal gas pattern is nonspecific. Liquid barium was administered and the barium column was followed through the small bowel to the level of the terminal ileum. Small bowel transit time is approximately 15 minutes. During fluoroscopy gentle palpation shows all loops are freely movable and pliable. There are no fixed or angulated loops. The small bowel mucosal pattern is normal in course and caliber. There is no transition to suggest a partial small bowel obstruction. Spot filming of terminal ileum shows it to be unremarkable. IMPRESSION: 1. Small bowel follow-through examination within normal limits. 1 minutes and 38 seconds of fluoroscopy time was utilized for this procedure. Reviewed by MARY Dao 08/09/2016 04:47 PEdited and Signed by Rebel Moreno MD 08/09/2016 05:27 P
== END ==
LOC: M RAD 08:45
PROVIDERS: ATTEND Physician Assistant Medical
DX: R63.4 Abnormal weight loss (principal)

== ENCOUNTER → 2016-08-31 | Outpatient (CLI) | payer OTHER ==
[~2016-08-31] VITALS: Ht 177.8 cm; Wt 99.3 kg
[~2016-08-31] MED LIST changes: -E-Z PAQUE 60% w/v SUSP 355ML BOTTLE As Ordered ONE; +LIDOCAINE 2% INJ 100 MG/5 ML SDV (FOR ANES.) As Ordered ONE; +NS 1,000 ML IV SCH; +PROPOFOL 200 MG/20 ML VIAL As Ordered ONE
--- NOTE | 2016-08-31 15:04 | ROOR ---
Patient Name: Tremaine Brown Procedure Date: 08/31/2016 2:54 PM Date of : 1985 Age: 31 Room: [facility] Gender: Male Note Status: Finalized Procedure: Upper GI endoscopy Indications: Abdominal pain, Heartburn Providers: Reyes LUCIA MD Referring MD: MARTHA GORDON NP Requesting Provider: Medicines: Monitored Anesthesia Care Complications: No immediate complications. Procedure: Pre-Anesthesia Assessment: - The heart rate, respiratory rate, oxygen saturations, blood pressure, adequacy of pulmonary ventilation, and response to care were monitored throughout the procedure. The Endoscope was introduced through the mouth, and advanced to the second part of duodenum. The upper GI endoscopy was accomplished without difficulty. The patient tolerated the procedure well. Findings: The esophagus was normal. The stomach was normal. The examined duodenum was normal. Impression: - Normal esophagus. - Normal stomach with a small hiatal hernia. - Normal examined duodenum. - No specimens collected. Recommendation: - Continue present medications. - Observe patient's clinical course. Reyes Lucia MD Reyes LUCIA MD 08/31/2016 3:03:57 PM This report has been signed electronically. Number of Addenda: 0 Note Initiated On: 08/31/2016 2:54 PM Estimated Blood Loss: Estimated blood loss: none.
--- NOTE | 2016-08-31 15:15 | ROOR ---
Patient Name: Tremaine Brown Procedure Date: 08/31/2016 2:55 PM Date of : 1985 Age: 31 [facility] Gender: Male Note Status: Finalized Procedure: Colonoscopy Indications: Hematochezia, Suspected irritable bowel syndrome, Change in bowel habits Providers: Reyes LUCIA MD Referring MD: MARTHA GORDON NP Requesting Provider: Medicines: Monitored Anesthesia Care Complications: No immediate complications. Procedure: Pre-Anesthesia Assessment: - The heart rate, respiratory rate, oxygen saturations, blood pressure, adequacy of pulmonary ventilation, and response to care were monitored throughout the procedure. The Colonoscope was introduced through the anus and advanced to 6 cm into the ileum. The colonoscopy was performed without difficulty. The patient tolerated the procedure well. The quality of the bowel preparation was good. Findings: The perianal and digital rectal examinations were normal. (Exam: Complete, Prep: Good or Excellent.) The terminal ileum appeared normal. The entire examined colon appeared normal on direct and retroflexion views. Internal hemorrhoids were found during retroflexion. The hemorrhoids were small. Impression: - The examined portion of the ileum was normal. - The entire examined colon is normal on direct and retroflexion views. - Internal hemorrhoids. - No specimens collected. - (Irritable Bowel Syndrome/IBS suspected.) Recommendation: - Use Bentyl (dicyclomine) 20 mg every 4-6 hrs as needed for abdominal pain, diarrhea, bloating - (the script was sent to your pharmacy on file) Reyes Lucia MD Reyes LUCIA MD 08/31/2016 3:15:10 PM This report has been signed electronically. Number of Addenda: 0 Note Initiated On: 08/31/2016 2:55 PM Estimated Blood Loss: Estimated blood loss: none.
[2016-08-31 15:35] VITALS: BP 134/87
== END | disposition home or self-care (01) ==
LOC: M OPP 13:39
PROVIDERS: ATTEND Internal Medicine Gastroenterology
DX: K92.1 Melena (principal); R19.4 Change in bowel habit; K64.8 Other hemorrhoids; R10.84 Generalized abdominal pain; R12 Heartburn; R63.4 Abnormal weight loss; K44.9 Diaphragmatic hernia without obstruction or gangrene; M19.90 Unspecified osteoarthritis, unspecified site; F41.9 Anxiety disorder, unspecified; K92.0 Hematemesis; J45.909 Unspecified asthma, uncomplicated; F17.210 Nicotine dependence, cigarettes, uncomplicated; Z91.040 Latex allergy status; Z79.899 Other long term (current) drug therapy

== ENCOUNTER → 2016-11-05 | Outpatient (CLI) | payer OTHER ==
[~2016-11-05] MED LIST changes: -LIDOCAINE 2% INJ 100 MG/5 ML SDV (FOR ANES.) As Ordered ONE; -NS 1,000 ML IV SCH; +PERC5TAB12 PO; -PERC5TAB6 PO; -PROPOFOL 200 MG/20 ML VIAL As Ordered ONE
[2016-11-05 17:05] LABS: BASO # 0.1 K/mm3 (0.0-0.2); BASO % 1.3 % (0.0-1.0); EOS # 0.4 K/mm3 (0.0-0.50); LARGE UNSTAINED CELL # 0.2 K/mm3 (0.0-0.4); LARGE UNSTAINED CELL % 1.9 % (0.0-4.0); LYMPH # 3.2 K/mm3 (1.5-4.5); LYMPH % 35.3 % (24.0-44.0); MEAN CORPUSCULAR HEMOGLOBIN 31.4 pg (27.0-33.0); MEAN CORPUSCULAR HGB CONC 34.9 g/dl (32.0-36.5); MEAN CORPUSCULAR VOLUME 89.9 fl (80.0-96.0); MONO # 0.4 K/mm3 (0.0-0.8); MONO % 4.7 % (0.0-5.0); NEUTROPHILS # 4.8 K/mm3 (1.8-7.7); NEUTROPHILS % 52.8 % (36.0-66.0); PLATELET COUNT, AUTOMATED 210 k/mm3 (150-450); RED CELL DISTRIBUTION WIDTH 13.4 % (11.5-14.5)
[2016-11-05 17:27] LABS: ALBUMIN/GLOBULIN RATIO 1.29 (1.00-1.93); ALKALINE PHOSPHATASE 80 U/L (45-117); ALT/SGPT 30 U/L (12-78); ANION GAP 6 MEQ/L (8-16); AST/SGOT 18 U/L (15-37); BILIRUBIN,TOTAL 0.3 MG/DL (0.2-1.0); BLOOD UREA NITROGEN 12 MG/DL (7-18); CALCIUM LEVEL 8.9 MG/DL (8.5-10.1); CARBON DIOXIDE LEVEL 29 MEQ/L (21-32); CHLORIDE LEVEL 105 MEQ/L (98-107); CHOLESTEROL LEVEL 220 MG/DL (<200); CREATININE FOR GFR 1.16 MG/DL (0.70-1.30); GLOMERULAR FILTRATION RATE > 60.0 (>60); GLUCOSE, FASTING 87 MG/DL (70-105); POTASSIUM SERUM 4.4 MEQ/L (3.5-5.1); SODIUM LEVEL 140 MEQ/L (136-145); TOTAL PROTEIN 7.1 GM/DL (6.4-8.2); TRIGLYCERIDES LEVEL 206 MG/DL (<150)
== END ==
LOC: M WUC 13:47
PROVIDERS: ATTEND Nurse Practitioner Adult Health
DX: E78.00 Pure hypercholesterolemia, unspecified (principal); E55.9 Vitamin D deficiency, unspecified; R19.5 Other fecal abnormalities; Z72.0 Tobacco use

== ENCOUNTER → 2017-07-07 | Outpatient (CLI) | payer OTHER | LOC: M RAD 14:09 | DX: M54.5 Low back pain (principal) | CPT/HCPCS: 72148 ==

== ENCOUNTER → 2017-08-23 | Outpatient (CLI) | payer OTHER ==
[2017-08-23 16:50] LABS: BASO # 0.1 10^3/uL (0.0-0.2); BASO % 0.9 % (0.0-1.0); EOS # 0.5 10^3/uL (0.0-0.50); EOS % 3.8 % (0.0-3.0); HEMATOCRIT 48.2 % (42.0-52.0); HEMOGLOBIN 16.3 g/dl (13.5-17.5); IMMATURE GRANULOCYTE % 0.3 % (0-3.0); LYMPH % 42.1 % (24.0-44.0); MEAN CORPUSCULAR HEMOGLOBIN 30.1 pg (27.0-33.0); MEAN CORPUSCULAR HGB CONC 33.8 g/dl (32.0-36.5); MEAN CORPUSCULAR VOLUME 88.9 fl (80.0-96.0); MONO # 0.9 10^3/uL (0.0-0.8); MONO % 7.8 % (0.0-5.0); NEUTROPHILS # 5.4 10^3/uL (1.8-7.7); NEUTROPHILS % 45.1 % (36.0-66.0); PLATELET COUNT, AUTOMATED 271 10^3/uL (150-450); RED BLOOD COUNT 5.42 10^6/uL (4.30-6.10); RED CELL DISTRIBUTION WIDTH 13.6 % (11.5-14.5)
[2017-08-23 16:51] LABS: POSITIVE DIFF POS FLAG
[2017-08-23 17:24] LABS: ALBUMIN 3.9 GM/DL (3.2-5.2); ALBUMIN/GLOBULIN RATIO 1.11 (1.00-1.93); ALKALINE PHOSPHATASE 78 U/L (45-117); ALT/SGPT 62 U/L (12-78); ANION GAP 4 MEQ/L (8-16); AST/SGOT 26 U/L (7-37); BILIRUBIN,TOTAL 0.4 MG/DL (0.2-1.0); BLOOD UREA NITROGEN 16 MG/DL (7-18); CALCIUM LEVEL 8.7 MG/DL (8.5-10.1); CARBON DIOXIDE LEVEL 31 MEQ/L (21-32); CHLORIDE LEVEL 106 MEQ/L (98-107); CHOLESTEROL LEVEL 205 MG/DL (<200); CREATININE FOR GFR 1.43 MG/DL (0.70-1.30); GLOMERULAR FILTRATION RATE > 60.0 (>60); GLUCOSE, FASTING 89 MG/DL (70-100); HDL CHOLESTEROL 42 MG/DL (>40); LDL CHOLESTEROL 115.4 MG/DL (<100); NON-HDL-C 163 MG/DL; POTASSIUM SERUM 4.2 MEQ/L (3.5-5.1); SODIUM LEVEL 141 MEQ/L (136-145); TOTAL PROTEIN 7.4 GM/DL (6.4-8.2); TRIGLYCERIDES LEVEL 238 MG/DL (<150)
[2017-08-23 17:51] LABS: ESTIMATED AVERAGE GLUCOSE 108 MG/DL (60-110); HEMOGLOBIN A1c 5.4 %
[2017-08-23 17:59] LABS: MALB URINE SIEMENS 13.7 MG/L; MAU/CREAT RATIO 4.8 MCG/MG (0.0-30.0)
[2017-08-23 19:56] LABS: TOTAL 25(OH) VITAMIN D 9.5 NG/ML (30.0-100.0)
== END ==
LOC: M WUC 11:01
DX: Z79.899 Other long term (current) drug therapy (principal)
CPT/HCPCS: 84443

== ENCOUNTER → 2018-08-07 | Outpatient (REF) | payer OTHER, MEDICAID ==
[~2018-08-07] MED LIST changes: +TIZA4CAP PO; -TIZA4CAP3 PO
[2018-08-07 13:18] LABS: BASO # 0.1 10^3/uL (0.0-0.2); BASO % 1.2 % (0.0-1.0); EOS # 0.3 10^3/uL (0.0-0.50); EOS % 3.9 % (0.0-3.0); HEMATOCRIT 49.1 % (42.0-52.0); HEMOGLOBIN 16.3 g/dl (13.5-17.5); LYMPH # 4.3 10^3/uL (1.5-4.5); LYMPH % 48.2 % (24.0-44.0); MEAN CORPUSCULAR HGB CONC 33.2 g/dl (32.0-36.5); MEAN CORPUSCULAR VOLUME 87.2 fl (80.0-96.0); MONO # 0.6 10^3/uL (0.0-0.8); MONO % 7.2 % (0.0-5.0); NEUTROPHILS # 3.5 10^3/uL (1.8-7.7); NEUTROPHILS % 39.2 % (36.0-66.0); PLATELET COUNT, AUTOMATED 258 10^3/uL (150-450); RED BLOOD COUNT 5.63 10^6/uL (4.30-6.10); WHITE BLOOD COUNT 8.8 10^3/uL (4.0-10.0)
[2018-08-07 13:36] LABS: ALBUMIN 3.9 GM/DL (3.2-5.2); ALT/SGPT 35 U/L (12-78); BILIRUBIN,TOTAL 0.4 MG/DL (0.2-1.0); BLOOD UREA NITROGEN 13 MG/DL (7-18); CALCIUM LEVEL 8.8 MG/DL (8.5-10.1); CARBON DIOXIDE LEVEL 28 MEQ/L (21-32); CHLORIDE LEVEL 110 MEQ/L (98-107); CHOLESTEROL LEVEL 226 MG/DL (<200); CHOLESTEROL RISK RATIO 6.457 (<5); CREATININE FOR GFR 1.25 MG/DL (0.70-1.30); FREE T4 1.33 NG/DL (0.76-1.46); GLOMERULAR FILTRATION RATE > 60.0 (>60); GLUCOSE, FASTING 100 MG/DL (70-100); HDL CHOLESTEROL 35 MG/DL (>40); LDL CHOLESTEROL 157 MG/DL (<100); NON-HDL-C 191 MG/DL; POTASSIUM SERUM 4.2 MEQ/L (3.5-5.1); SODIUM LEVEL 141 MEQ/L (136-145); TOTAL 25(OH) VITAMIN D 15.1 NG/ML (30.0-100.0); TRIGLYCERIDES LEVEL 170 MG/DL (<150)
[2018-08-07 14:38] LABS: HEMOGLOBIN A1c 5.5 %
[2018-08-09 00:07] LABS: Lyme Disease IgG/IgM Antibodie <0.91 ISR (0.00-0.90); Lyme Disease IgM Ab Quantitati <0.80 index (0.00-0.79)
== END ==
LOC: M LAB REF 12:20
PROVIDERS: ATTEND Family Medicine
DX: Z13.228 Encounter for screening for other metabolic disorders (principal); M54.5 Low back pain; M25.552 Pain in left hip

== ENCOUNTER → 2018-11-24 | Outpatient (REF) | payer OTHER, MEDICAID ==
[2018-11-24 16:59] LABS: HEMOGLOBIN A1c 5.7 %
[2018-11-24 17:07] LABS: ALBUMIN 3.9 GM/DL (3.2-5.2); ALT/SGPT 38 U/L (12-78); BILIRUBIN,TOTAL 0.5 MG/DL (0.2-1.0); BLOOD UREA NITROGEN 15 MG/DL (7-18); CALCIUM LEVEL 8.7 MG/DL (8.5-10.1); CARBON DIOXIDE LEVEL 26 MEQ/L (21-32); CHLORIDE LEVEL 108 MEQ/L (98-107); CHOLESTEROL LEVEL 246 MG/DL (<200); CHOLESTEROL RISK RATIO 5.857 (<5); CREATININE FOR GFR 1.26 MG/DL (0.70-1.30); GLOMERULAR FILTRATION RATE > 60.0 (>60); GLUCOSE, FASTING 100 MG/DL (70-100); HDL CHOLESTEROL 42 MG/DL (>40); LDL CHOLESTEROL 149 MG/DL (<100); NON-HDL-C 204 MG/DL; POTASSIUM SERUM 4.3 MEQ/L (3.5-5.1); SODIUM LEVEL 141 MEQ/L (136-145); TOTAL PROTEIN 7.2 GM/DL (6.4-8.2); TRIGLYCERIDES LEVEL 274 MG/DL (<150)
[2018-11-24 17:18] LABS: MALB URINE SIEMENS 15.9 MG/L; MAU/CREAT RATIO 5.7 MCG/MG (0.0-30.0)
== END ==
LOC: M LAB REF 15:53
PROVIDERS: ATTEND Family Medicine
DX: R73.03 Prediabetes (principal); E78.5 Hyperlipidemia, unspecified

== ENCOUNTER 2024-02-04 01:16 | Emergency (ER) | payer MEDICAID, OTHER ==
[~2024-02-04] VITALS: Ht 177.8 cm; Wt 106.2 kg
[2024-02-04 01:58] LABS: BASO # 0.1 10^3/uL (0.0-0.2); BASO % 0.9 % (0.0-1.0); EOS # 0.4 10^3/uL (0.0-0.5); EOS % 3.6 % (0.0-3.0); HEMATOCRIT 45.3 % (42.0-52.0); HEMOGLOBIN 15.5 g/dl (13.5-17.5); LYMPH # 5.4 10^3/uL (1.5-5.0); LYMPH % 48.3 % (24.0-44.0); MEAN CORPUSCULAR HGB CONC 34.2 g/dl (32.0-36.5); MEAN CORPUSCULAR VOLUME 90.6 fl (80.0-96.0); MONO # 0.6 10^3/uL (0.0-0.8); MONO % 5.6 % (2.0-8.0); NEUTROPHILS # 4.6 10^3/uL (1.5-8.5); NEUTROPHILS % 41.3 % (36.0-66.0); PLATELET COUNT, AUTOMATED 235 10^3/uL (150-450); WHITE BLOOD COUNT 11.2 10^3/uL (4.0-10.0)
[2024-02-04] MEDS ORDERED: ISOVUE-370 76% 100ML VIAL As Ordered ONE (03:00)
[2024-02-04 03:04] LABS: LIPASE 29 U/L (12-53)
[2024-02-04] MEDS: KETOROLAC 30 MG/ML 1ML VIAL IV ONE (03:15)
[2024-02-04 03:16] LABS: ALBUMIN 3.9 G/DL (3.2-5.2); ALKALINE PHOSPHATASE 84 U/L (46-116); ALT/SGPT 37 U/L (7.0-40); AST/SGOT 28 U/L (<34); BILIRUBIN,DIRECT < 0.1 MG/DL (<0.4); BILIRUBIN,TOTAL 0.2 MG/DL (0.3-1.2); BLOOD UREA NITROGEN 13 MG/DL (9-23); CALCIUM LEVEL 9.7 MG/DL (8.5-10.1); CARBON DIOXIDE LEVEL 31 MMOL/L (20-31); CHLORIDE LEVEL 107 MMOL/L (98-107); GLOMERULAR FILTRATION RATE > 60.0 (>60); GLUCOSE, FASTING 80 MG/DL (60-100); POTASSIUM SERUM 4.1 MMOL/L (3.5-5.1); SODIUM LEVEL 140 MMOL/L (136-145); TOTAL PROTEIN 7.2 G/DL (5.7-8.2)
[2024-02-04 03:46] LABS: APPEARANCE, URINE CLEAR (CLEAR); BACTERIA, URINE AUTO NEGATIVE (NEGATIVE); BILIRUBIN, URINE AUTO NEGATIVE (NEGATIVE); BLOOD, URINE BLOOD NEGATIVE (NEGATIVE); COLOR, URINE YELLOW (YELLOW); GLUCOSE, URINE (UA) AUTO NEGATIVE (NEGATIVE); KETONE, URINE AUTO NEGATIVE (NEGATIVE); LEUKOCYTE ESTERASE, URINE AUTO NEGATIVE (NEGATIVE); MUCUS, URINE SMALL (NEGATIVE); NITRITE, URINE AUTO NEGATIVE (NEGATIVE); PROTEIN, URINE AUTO NEGATIVE (NEGATIVE); RBC, URINE AUTO 0 /HPF (0-3); SPECIFIC GRAVITY URINE AUTO 1.021 (1.002-1.035); SQUAMOUS EPITHELIAL CELL UR AU 0 /HPF (0-6); WBC, URINE AUTO 1 /HPF (0-3)
[2024-02-04] MEDS ORDERED: PROT1TAB2 PO (06:10)
[2024-02-04] MEDS: PANTOPRAZOLE 40MG VIAL IV ONE (06:18)
[2024-02-04 06:23] VITALS: BP 147/78; TEMP 98; O2SAT 97
== END 2024-02-04 06:25 | disposition home or self-care (01) ==
LOC: M ED 01:16
DX: R10.9 Unspecified abdominal pain (principal); K43.9 Ventral hernia without obstruction or gangrene; I10 Essential (primary) hypertension; K58.9 Irritable bowel syndrome, unspecified; F17.200 Nicotine dependence, unspecified, uncomplicated; F10.10 Alcohol abuse, uncomplicated; F12.10 Cannabis abuse, uncomplicated; Z91.040 Latex allergy status; Z79.899 Other long term (current) drug therapy
CPT/HCPCS: 74177; 80047; 80048; 80076; 81001; 83605; 83690; 85025; 93041; 96374; 96375; 99284; J1885; J2470; Q9967

== ENCOUNTER → 2025-02-05 | Outpatient (CLI) | payer OTHER ==
[~2025-02-05] MED LIST changes: +PROT1TAB2 PO
== END ==
LOC: M WUC 11:41
PROVIDERS: ATTEND Physician Assistant
DX: R05.9 Cough, unspecified (principal); S23.41XA Sprain of ribs, initial encounter; R06.2 Wheezing; X58.XXXA Exposure to other specified factors, initial encounter; Y92.9 Unspecified place or not applicable; Y93.9 Activity, unspecified; Y99.9 Unspecified external cause status